=== PATIENT | female | born 1990 | race Caucasian/White ===

== ENCOUNTER → 2016-06-23 | Outpatient (REF) | payer OTHER | LOC: M SFHCWAGY 11:06 | PROVIDERS: ATTEND Nurse Practitioner Family | DX: Z12.4 Encounter for screening for malignant neoplasm of cervix (principal) ==

== ENCOUNTER → 2017-01-22 | Outpatient (REF) | payer OTHER | LOC: M LAB REF 20:04 | PROVIDERS: ATTEND Physician Assistant | DX: N39.0 Urinary tract infection, site not specified (principal) ==

== ENCOUNTER → 2017-07-16 | Outpatient (REF) | payer OTHER ==
[2017-07-16 23:34] LABS: APPEARANCE, URINE CLEAR (CLEAR); BACTERIA, URINE AUTO 1+ (NEGATIVE); BILIRUBIN, URINE AUTO NEGATIVE (NEGATIVE); BLOOD, URINE BLOOD NEGATIVE (NEGATIVE); COLOR, URINE AMBER (YELLOW); GLUCOSE, URINE (UA) AUTO NEGATIVE (NEGATIVE); KETONE, URINE AUTO NEGATIVE (NEGATIVE); LEUKOCYTE ESTERASE, URINE AUTO NEGATIVE (NEGATIVE); NITRITE, URINE AUTO POSITIVE (NEGATIVE); PROTEIN, URINE AUTO NEGATIVE (NEGATIVE); RBC, URINE AUTO 1 /HPF (0-3); SPECIFIC GRAVITY URINE AUTO 1.003 (1.002-1.035); SQUAMOUS EPITHELIAL CELL UR AU 0 /HPF (0-6); WBC, URINE AUTO 2 /HPF (0-3)
== END ==
LOC: M LAB REF 22:58
DX: N39.0 Urinary tract infection, site not specified (principal)

== ENCOUNTER → 2017-07-22 | Outpatient (REF) | payer OTHER ==
[2017-07-22 19:49] LABS: CHLAMYDIA DNA AMPLIFICATION NEGATIVE (NEGATIVE); GC DNA AMPLIFICATION NEGATIVE (NEGATIVE)
== END ==
LOC: M SFHCWAGY 16:01
DX: Z12.4 Encounter for screening for malignant neoplasm of cervix (principal)
CPT/HCPCS: 87591

== ENCOUNTER → 2018-09-09 | Outpatient (REF) | payer OTHER | LOC: M SFHCWAGY 14:36 | PROVIDERS: ATTEND Nurse Practitioner Family | DX: Z12.4 Encounter for screening for malignant neoplasm of cervix (principal) ==

== ENCOUNTER → 2018-10-27 | Outpatient (REF) | payer OTHER ==
[2018-10-27 23:19] LABS: CHLAMYDIA DNA AMPLIFICATION NEGATIVE (NEGATIVE); GC DNA AMPLIFICATION NEGATIVE (NEGATIVE)
== END ==
LOC: M SFHCWAGY 17:11
PROVIDERS: ATTEND Nurse Practitioner Family
DX: N94.9 Unspecified condition associated with female genital organs and menstrual cycle (principal)

== ENCOUNTER → 2019-09-12 | Outpatient (REF) | payer OTHER | LOC: M SFHCWAGY 16:57 | PROVIDERS: ATTEND Nurse Practitioner Women's Health | DX: Z12.4 Encounter for screening for malignant neoplasm of cervix (principal) ==

== ENCOUNTER → 2019-11-04 | Outpatient (REF) | payer OTHER ==
[2019-11-07 15:07] LABS: ANTINUCLEAR ANTIBODIES DIRECT Negative (Negative)
== END ==
LOC: M PLALAB 09:46
PROVIDERS: ATTEND Nurse Practitioner Family
DX: R68.2 Dry mouth, unspecified (principal)

== ENCOUNTER → 2020-09-12 | Outpatient (REF) | payer OTHER | LOC: M SFHCWAGY 13:32 | PROVIDERS: ATTEND Nurse Practitioner Women's Health | DX: Z12.4 Encounter for screening for malignant neoplasm of cervix (principal) ==

== ENCOUNTER 2022-06-11 16:29 | Emergency (ER) | payer OTHER ==
[~2022-06-11] VITALS: Ht 172.7 cm; Wt 61.4 kg
[2022-06-11 16:29] VITALS: BP 128/86
[2022-06-11] MEDS ORDERED: TRI-TAB16 PO (16:40)
== END 2022-06-11 20:49 | disposition left against medical advice (07) ==
LOC: M ED 16:29
DX: Z53.21 Procedure and treatment not carried out due to patient leaving prior to being seen by health care provider (principal)

== ENCOUNTER → 2022-06-23 | Outpatient (REF) | payer OTHER ==
[~2022-06-23] MED LIST: TRI-TAB16 PO
== END ==
LOC: M PLALAB 16:28
PROVIDERS: ATTEND Nurse Practitioner Family
DX: Z12.4 Encounter for screening for malignant neoplasm of cervix (principal)
CPT/HCPCS: 87624; G0123

== ENCOUNTER → 2023-07-15 | Outpatient (REF) | payer OTHER | LOC: M SFHCWAGY 12:26 | PROVIDERS: ATTEND Nurse Practitioner Family | DX: Z12.4 Encounter for screening for malignant neoplasm of cervix (principal) | CPT/HCPCS: 87624; G0123 ==

== ENCOUNTER → 2023-12-01 | Outpatient (CLI) | payer OTHER | LOC: M PLALAB 14:56 | PROVIDERS: ATTEND Advanced Practice Midwife | DX: O36.80X0 Pregnancy with inconclusive fetal viability, not applicable or unspecified (principal); Z3A.00 Weeks of gestation of pregnancy not specified ==

== ENCOUNTER → 2023-12-03 | Outpatient (CLI) | payer OTHER | LOC: M PLALAB 15:53 | PROVIDERS: ATTEND Advanced Practice Midwife | DX: O36.80X0 Pregnancy with inconclusive fetal viability, not applicable or unspecified (principal); Z3A.00 Weeks of gestation of pregnancy not specified ==

== ENCOUNTER 2023-12-08 07:55 | Day surgery (SDC) | payer OTHER ==
[~2023-12-08] VITALS: Ht 172.7 cm; Wt 65.0 kg
[~2023-12-08 07:55] MED LIST changes: +FERR325T81 PO; +MULTTAB20 PO
[2023-12-08] MEDS ORDERED: fentaNYL 100 MCG/2 ML INJECTION As Ordered ONE (08:14)
[2023-12-08] MEDS ORDERED: LIDOCAINE 2% 100MG/5ML SDV (FOR ANES.) As Ordered ONE (08:15)
[2023-12-08] MEDS ORDERED: MIDAZOLAM INJ 2MG/2ML VIAL As Ordered ONE (08:15)
[2023-12-08] MEDS ORDERED: propofoL 200 MG/20 ML VIAL As Ordered ONE (08:15)
[2023-12-08] MEDS ORDERED: ROCURONIUM BROMIDE 50MG/5ML VIAL As Ordered ONE (08:15)
[2023-12-08] MEDS ORDERED: LR 1,000 ML IV SCH ×3 (08:20→10:10)
[2023-12-08] MEDS ORDERED: ONDANSETRON 4MG 2ML VIAL As Ordered ONE (08:41)
[2023-12-08] MEDS ORDERED: KETOROLAC 60MG 2ML VIAL As Ordered ONE (08:41)
[2023-12-08] MEDS ORDERED: ONDANSETRON 4MG 2ML VIAL IV PRN (10:05)
[2023-12-08] MEDS ORDERED: HYDROMORPHONE HCL 0.5 MG/ 0.5 ML SYRINGE IV PRN (10:05)
[2023-12-08] MEDS ORDERED: oxyCODONE 5MG TAB PO PRN (10:05)
[2023-12-08] MEDS ORDERED: fentaNYL 100 MCG/2 ML INJECTION IV PRN (10:05)
[2023-12-08 10:40] VITALS: TEMP 97.9
[2023-12-08] MEDS ORDERED: ACETAMINOPHEN 500 MG TAB PO ONE (11:00)
[2023-12-08] MEDS ORDERED: DOXYCYCLINE HYCLATE 100MG TABLET PO ONE (11:00)
[2023-12-08 11:07] VITALS: BP 105/55; O2SAT 100
== END 2023-12-08 11:08 | disposition home or self-care (01) ==
LOC: M SDC 07:55
PROVIDERS: ATTEND Specialist
DX: O02.1 Missed abortion (principal); D50.9 Iron deficiency anemia, unspecified

== ENCOUNTER → 2024-03-02 | Outpatient (CLI) | payer OTHER | LOC: M PLALAB 15:25 | PROVIDERS: ATTEND Obstetrics & Gynecology | DX: O26.851 Spotting complicating pregnancy, first trimester (principal); Z3A.00 Weeks of gestation of pregnancy not specified ==

== ENCOUNTER → 2024-03-04 | Outpatient (CLI) | payer OTHER | LOC: M PLALAB 15:00 | PROVIDERS: ATTEND Obstetrics & Gynecology | DX: O26.851 Spotting complicating pregnancy, first trimester (principal); Z3A.00 Weeks of gestation of pregnancy not specified ==

== ENCOUNTER → 2024-03-25 | Outpatient (CLI) | payer OTHER ==
[2024-03-25 19:08] LABS: FREE T4 1.22 NG/DL (0.89-1.76); THYROID STIMULATING HORMONE 0.794 uIU/ML (0.55-4.78)
[2024-03-28 14:08] LABS: CYTOMEGALOVIRUS IgM ANTIBODY < 30.00 AU/mL (<30.00)
[2024-03-28 14:22] LABS: ANA SCREEN, IFA NEGATIVE (NEGATIVE)
[2024-03-28 15:08] LABS: TOXOPLASMA IgG ABY <3.0 IU/mL (0.0-7.1)
== END ==
LOC: M PLALAB 15:02
PROVIDERS: ATTEND Specialist
DX: N96 Recurrent pregnancy loss (principal)

== ENCOUNTER → 2024-05-25 | Outpatient (CLI) | payer OTHER | LOC: M PLALAB 09:54 | PROVIDERS: ATTEND Obstetrics & Gynecology | DX: Z34.80 Encounter for supervision of other normal pregnancy, unspecified trimester (principal); Z3A.00 Weeks of gestation of pregnancy not specified ==

== ENCOUNTER → 2024-06-16 | Outpatient (CLI) | payer OTHER ==
[2024-06-16 15:58] LABS: HEMATOCRIT 34.4 % (36.0-47.0); HEMOGLOBIN 11.3 g/dl (12.0-15.5); MEAN CORPUSCULAR HEMOGLOBIN 32.4 pg (27.0-33.0); MEAN CORPUSCULAR HGB CONC 32.8 g/dl (32.0-36.5); MEAN CORPUSCULAR VOLUME 98.6 fl (80.0-96.0); PLATELET COUNT, AUTOMATED 241 10^3/uL (150-450); RED BLOOD COUNT 3.49 10^6/uL (4.00-5.40); WHITE BLOOD COUNT 6.9 10^3/uL (4.0-10.0)
[2024-06-16 16:59] LABS: HEPATITIS C VIRUS ABY INDEX < 0.02 INDEX (<0.8)
[2024-06-16 17:01] LABS: HIV 1&2 SCREEN NEGATIVE (NEGATIVE)
== END ==
LOC: M PLALAB 13:15
PROVIDERS: ATTEND Obstetrics & Gynecology
DX: O26.21 Pregnancy care for patient with recurrent pregnancy loss, first trimester (principal); Z3A.00 Weeks of gestation of pregnancy not specified

== ENCOUNTER → 2024-06-16 | Outpatient (REF) | payer OTHER ==
[2024-06-16 15:43] LABS: GC DNA AMPLIFICATION NEGATIVE (NEGATIVE)
== END ==
LOC: M PLALAB 11:40
PROVIDERS: ATTEND Obstetrics & Gynecology
DX: O26.21 Pregnancy care for patient with recurrent pregnancy loss, first trimester (principal)

== ENCOUNTER → 2024-07-25 | Outpatient (CLI) | payer OTHER | LOC: M WHC 13:56 | PROVIDERS: ATTEND Nurse Practitioner Family | DX: Z34.82 Encounter for supervision of other normal pregnancy, second trimester (principal); Z3A.19 19 weeks gestation of pregnancy ==

== ENCOUNTER → 2024-08-22 | Outpatient (CLI) | payer OTHER | LOC: M WHC 08:15 | PROVIDERS: ATTEND Nurse Practitioner Family | DX: Z34.80 Encounter for supervision of other normal pregnancy, unspecified trimester (principal) ==

== ENCOUNTER → 2024-09-23 | Outpatient (CLI) | payer OTHER ==
[2024-09-23 13:10] LABS: HEMATOCRIT 34.4 % (36.0-47.0); MEAN CORPUSCULAR VOLUME 103.3 fl (80.0-96.0); PLATELET COUNT, AUTOMATED 187 10^3/uL (150-450); RED BLOOD COUNT 3.33 10^6/uL (4.00-5.40); WHITE BLOOD COUNT 6.6 10^3/uL (4.0-10.0)
[2024-09-23 13:15] LABS: GLUCOSE CHALLENGE TEST 1 HOUR 93 MG/DL (LESS THAN 140)
[2024-09-23 14:03] LABS: HEPATITIS C VIRUS ABY INDEX 0.03 INDEX (<0.8)
[2024-09-23 14:10] LABS: Trichomonas vaginalis (AMP) NOT DETECTED (NEGATIVE)
[2024-09-23 14:12] LABS: HIV 1&2 SCREEN NEGATIVE (NEGATIVE)
[2024-09-23 14:35] LABS: GC DNA AMPLIFICATION NEGATIVE (NEGATIVE)
== END ==
LOC: M PLALAB 07:56
PROVIDERS: ATTEND Nurse Practitioner Family
DX: Z34.80 Encounter for supervision of other normal pregnancy, unspecified trimester (principal)

== ENCOUNTER 2024-12-20 15:44 | Inpatient (IN) | payer OTHER ==
[~2024-12-20] VITALS: Ht 175.3 cm; Wt 80.9 kg
[2024-12-20 16:04] VITALS: BP 133/85
[2024-12-20] MEDS ORDERED: HOME MED LIST COMPLETE! XX SCH (16:05)
[2024-12-20] MEDS ORDERED: OXYTOCIN 30UNITS IN 0.9% NaCl 500ML IV BAG As Ordered ONE (16:49)
[2024-12-20] MEDS ORDERED: OXYTOCIN DRIP 30 UNITS in IV 1 EA IV SCH (16:55)
[2024-12-20 17:05] LABS: PLATELET COUNT, AUTOMATED 168 10^3/uL (150-450)
[2024-12-20] MEDS: OXYTOCIN DRIP 30 UNITS in IV 1 EA IV PRN (17:28)
[2024-12-20] MEDS: LIDOCAINE 1% MDV 20 ML VIAL INFIL PRN (17:30)
[2024-12-20 17:32] VITALS: BP 123/89
[2024-12-20] MEDS: OXYTOCIN DRIP 30 UNITS in IV 1 EA IV SCH (17:45)
[2024-12-20] MEDS ORDERED: IBUPROFEN 600 MG TAB PO PRN (17:45)
[2024-12-20] MEDS ORDERED: ACETAMINOPHEN 325 MG TAB PO PRN (17:45)
[2024-12-20] MEDS ORDERED: DIBUCAINE 1% OINTMENT 30 GM TOP PRN (17:45)
[2024-12-20] MEDS ORDERED: DOCUSATE SODIUM 100 MG CAPSULE PO PRN (17:45)
[2024-12-20] MEDS ORDERED: ANUSOL HC CREAM 30 GM TOP PRN (17:45)
[2024-12-20] MEDS ORDERED: CALCIUM CARBONATE 500 MG CHEW U/D PO PRN (17:45)
[2024-12-20] MEDS ORDERED: METHYLERGONOVINE MALEATE 0.2 MG TAB PO PRN (17:45)
[2024-12-20] MEDS ORDERED: MOM 30 ML SUSPENSION UDC PO PRN (17:45)
[2024-12-20 17:47] VITALS: BP 122/85
[2024-12-20 18:03] VITALS: BP 137/86
[2024-12-20 18:05] LABS: HIV 1&2 SCREEN NEGATIVE (NEGATIVE)
[2024-12-20 18:13] LABS: HEPATITIS C VIRUS ABY INDEX < 0.02 INDEX (<0.8)
[2024-12-20 18:17] VITALS: BP 127/88
[2024-12-20] MEDS: IBUPROFEN 800 MG TAB PO PRN (20:09)
[2024-12-20 20:20] VITALS: BP 120/81; O2SAT 99
[2024-12-21] MEDS: ACETAMINOPHEN 500 MG TAB PO PRN (01:30)
[2024-12-21 05:38] VITALS: BP 120/73; O2SAT 98
[2024-12-21] MEDS: RHOGAM 300MCG (1500IU) INJ IM SCH (07:39)
[2024-12-21] MEDS: PRENATAL VITAMINS CHEWABLE TABLET PO SCH (08:45)
[2024-12-21] MEDS: MEASLES,MUMPS,RUBELLA VACCINE INJ (MMR-II) SC.IMMUN ONE (13:00)
== END 2024-12-21 15:00 | disposition home or self-care (01) | DRG 807 ==
LOC: M LDO 15:44 → M LDI 16:30 → M OBS 20:15
PROVIDERS: ADMIT Obstetrics & Gynecology; ATTEND Obstetrics & Gynecology
PROC: 10E0XZZ Delivery of Products of Conception, External Approach (ICD-10-PCS; principal; 2024-12-20)
PROC: 0HQ9XZZ Repair Perineum Skin, External Approach (ICD-10-PCS; 2024-12-20)
DX: O70.0 First degree perineal laceration during delivery (principal); Z37.0 Single live birth; Z3A.40 40 weeks gestation of pregnancy